=== PATIENT | female | born 2000 | race African-American/Black ===

== ENCOUNTER 2023-10-22 05:37 | Inpatient (IN) ==
--- NOTE | 2023-10-12 15:15 | History & Physical Report ---
Date of Service October 12, 2023 Assessment & Plan (1) Previous delivery affecting : (2) Gestational diabetes mellitus (GDM) affecting , antepartum: (3) Obesity affecting : (4) HSV (herpes simplex virus) anogenital infection: Plan Discussed indications, risks, benefits, alternatives with risks including infection, bleeding, injury to adjacent structures (bowel, bladder, ureters, blood vessels, nerves, baby), possible need for blood transfusion and/or life saving hysterectomy, VTE. Consent reviewed in detail w/ pt and signed after all questions answered to her satisfaction. History of Present Illness Chief Complaint: preop Primary Care Provider: NO PCP 23 yo G1 presents for preop to planned repeat CS at 39 wks. +FM; denies ctx, LOF, VB. 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 CS at 40 wks for 10lb 2 oz G2 current q23-28d cycles Hx HSV, ct Allergies Allergy/AdvReac Type Severity Reaction Status Date / Time No Known Allergies Allergy Verified 10/12/23 14:23 Home Medications Medication Instructions Recorded Confirmed Type vit no.95-ferrous 1 tab PO DAILY 05/21/23 10/12/23 History fumarate 28 mg-folic acid 800 mcg tablet () acetone (urine) test (Ketone Urine #50 ea 09/13/23 10/12/23 Rx Test strips) blood sugar diagnostic (FreeStyle #100 ea 09/17/23 10/12/23 Rx Lite Strips) blood-glucose meter (FreeStyle #1 ea 09/17/23 10/12/23 Rx Lite Meter kit) lancets 28 gauge (FreeStyle #100 ea 09/17/23 10/12/23 Rx Lancets) epinephrine 0.125 mg/actuation 1 puff inhalation Q4H PRN 09/24/23 10/12/23 History aerosol inhaler (Primatene Mist) sertraline 25 mg tablet (Zoloft) 25 mg PO DAILY #30 tabs 09/24/23 10/12/23 Rx Patient History Medical History HSV (herpes simplex virus) anogenital infection Atypical glandular cells of undetermined significance (BLAKE) on cervical Pap smear LGSIL on Pap smear of cervix Atopic dermatitis Seborrheic dermatitis Eczema HPV (human papilloma virus) infection Abnormal Pap smear of cervix Bartholin's gland abscess Seasonal allergies Chlamydia Asthma Surgical History S/P wisdom tooth extraction S/P tonsillectomy and adenoidectomy Status post colposcopy H/O section Family History Mother Stroke Hypertension Diabetes Depression Asthma Grandmother Diabetes Hypertension Father Depression Sister Depression Denies family history of Ovarian cancer Breast cancer Colorectal cancer Social History Smoking Status: Never smoker Second Hand Exposure: No; Do You Dip or Chew Tobacco: No; Hx Alcohol Use: No Hx Substance Use: No Preferred Language: Portuguese Communication Ability: Effective Visual Impairment: No Limitations Hearing Ability: Normal marital status: marital status details: Timur Irene (24) [phone] Current Living Situation: Spouse and Family Current Living Situation Comment: Lives with and child current occupational status: unemployed How many Children do You have: 1 Feels Safe at Home: Yes Childhood Exposure to Second-Hand Smoke: Yes Diet: low carbohydrate caffeine: Yes during the past year weight has: remained stable Dental Care, Regularly: No Physical Activity Frequency: Does not Exercise Seatbelt Use: always Sunscreen Use: No Assistive Devices: None Physical Exam Respiratory: normal respiratory effort, lungs clear to auscultation Cardiovascular: RRR, no murmur, no edema Genitourinary: NST reactive Results & Data Laboratory Results OB Labs: Blood Type B Positive 07/26/23 Antibody Screen NEGATIVE 07/26/23 Hemoglobin 10.0 g/dl (12.0-16.0) L 08/09/23 Hematocrit 29.9 % (37.0-47.0) L 08/09/23 Mean Corpuscular Volume 81.6 fL (80.0-100.0) 07/26/23 Platelet Count 284 K/uL (130-400) 07/26/23 Rubella IgG Antibody Immune (Immune) 07/26/23 Rapid Plasma Reagin Nonreactive (Nonreactive) 07/26/23 Hepatitis B Surface Antigen. NON-REACTIVE (NON-REACTIVE) 07/26/23 Hepatitis C Antibody (EIA) NON-REACTIVE (NON-REACTIVE) 07/26/23 HIV (1&2) Ag and Ab Confirmation NON-REACTIVE (NON-REACTIVE) 07/26/23 Glucose 1 Hour 50 gm Load 143 mg/dl (70-130) H 08/09/23 OB Optional Labs: Chlamydia trachomatis RNA Not Detected (NotDetected) 07/26/23 Neisseria gonorrhoeae RNA Not Detected (NotDetected) 07/26/23 Labs Reviewed: low risk [facility]--[facility] Diagnostic Findings 10/03 EFW 91%, AC > 98%, post plac Coding Level of Care Code None Diagnoses Previous delivery affecting O34.219 Gestational diabetes mellitus (GDM) affecting , antepartum O24.419 Obesity affecting O99.210 HSV (herpes simplex virus) anogenital infection A60.9
--- NOTE | 2023-10-15 14:06 | Anesthesiology Consultation ---
Date of Service October 15, 2023 Assessment & Plan (1) Encounter for pre-operative examination: Infectious disease screening: Per assessment on 10/15/23: No known recent infectious disease contacts or current infectious disease symptoms. Chart Review Chart Review: data entry assistant initiated History Surgery Operation Date: 10/22/23 07:30 Proposed Procedures p Section (Delivery of Baby Through Abdominal Incision) - Jeanette Mukherjee MD Height/Weight Height: 5 ft 2 in Weight: 112.491 kg Allergies Allergy/AdvReac Type Severity Reaction Status Date / Time No Known Allergies Allergy Verified 10/15/23 13:14 Medications Home Medications Medication Instructions Recorded Confirmed Last Taken vit no.95-ferrous 1 tab PO DAILY 05/21/23 10/15/23 05/20/23 fumarate 28 mg-folic acid 800 mcg tablet () acetone (urine) test (Ketone Urine #50 ea 09/13/23 10/12/23 Unknown Test strips) blood sugar diagnostic (FreeStyle #100 ea 09/17/23 10/12/23 Unknown Lite Strips) blood-glucose meter (FreeStyle #1 ea 09/17/23 10/12/23 Unknown Lite Meter kit) lancets 28 gauge (FreeStyle #100 ea 09/17/23 10/12/23 Unknown Lancets) epinephrine 0.125 mg/actuation 1 puff inhalation Q4H PRN SOB 09/24/23 10/15/23 Unknown aerosol inhaler (Primatene Mist) sertraline 25 mg tablet (Zoloft) 25 mg PO HS 10/15/23 10/15/23 Unknown Past Medical History Medical History (Updated 10/15/23 @ 14:05 by Alise Sawyer) Asthma Depression Eczema Hands Gestational diabetes mellitus (GDM) affecting HPV (human papilloma virus) infection Hx, no current issues Seasonal allergies Past Family History Family History Mother Stroke Hypertension Diabetes Depression Asthma Grandmother Diabetes Hypertension Father Depression Sister Depression Denies family history of Ovarian cancer Breast cancer Colorectal cancer Past Surgical History Surgical History (Updated 10/15/23 @ 14:05 by Alise Sawyer) H/O section S/P tonsillectomy and adenoidectomy S/P wisdom tooth extraction Status post colposcopy In-office procedure Social History Smoking Status: Never smoker Do You Dip or Chew Tobacco: No Hx Alcohol Use: Yes (socially, but rare) Hx Substance Use: No substance use type: does not use
[2023-10-22] MEDS: LACTATED RINGER'S 1,000 ML IV SCH ×2 (06:00→10:02)
[2023-10-22 06:10] LABS: Hematocrit (blood only) 31.4 % (37.0-47.0); Mean Corpuscular Hgb Conc 31.8 g/dL (32.0-36.0); Mean Corpuscular Volume 78.5 fL (80.0-100.0); Mean Platelet Volume 11.1 fL (9.4-12.4); Platelet Count 247 K/uL (130-400); RDW Coefficient of Variation 14.6 % (11.5-14.5); RDW Standard Deviation 41.1 fL (36.4-46.3); White Blood Count 9.29 K/ul (4.8-10.8)
[2023-10-22] MEDS: ACETAMINOPHEN 500 MG TAB PO SCH (06:13)
[2023-10-22] MEDS ORDERED: SODIUM CHLORIDE 0.9% 250 ML IV PRN (06:32)
[2023-10-22] MEDS ORDERED: LACTATED RINGER'S 1,000 ML IV SCH (06:45)
--- NOTE | 2023-10-22 07:14 | History & Physical Bridge Note ---
Date of Service October 22, 2023 History & Physical Bridge Note I have examined the patient, reviewed the History & Physical and in the interval since the performance of the History & Physical I have noted the following changes of clinical significance: no changes noted
[2023-10-22] MEDS ORDERED: ONDANSETRON INJ 2 MG/ML 2 ML VIAL ONE (07:15)
[2023-10-22] MEDS ORDERED: OXYTOCIN 10 UNITS/ML VIAL ONE (07:15)
[2023-10-22] MEDS ORDERED: fentaNYL citrate PF 100 MCG/2 ML VIAL ONE (07:15)
[2023-10-22] MEDS ORDERED: KETOROLAC 30 MG/ML VIAL ONE (07:15)
[2023-10-22] MEDS ORDERED: GLYCOPYRROLATE 0.2 MG/ML VIAL ONE (07:15)
[2023-10-22] MEDS ORDERED: MoRPHine SULFATE PF 1 MG/ML 10 ML AMP/VIAL ONE (07:15)
[2023-10-22] MEDS ORDERED: PHENYLEPHRINE 100MCG/ML 10ML SYR IV ONE (07:15)
[2023-10-22] MEDS ORDERED: DEXAMETHASONE SOD INJ 4 MG/ML VIAL ONE (07:15)
[2023-10-22] MEDS: CITRIC ACID/SODIUM CITRATE 15 ML UDC PO SCH (07:25)
[2023-10-22] MEDS: ceFAZolin 3,000 MG/72.5 ML BAG IV SCH (07:31)
[2023-10-22] MEDS ORDERED: DROPERIDOL 5 MG/2 ML VIAL IV PRN (08:22)
[2023-10-22] MEDS ORDERED: NALOXONE HCL 0.08 MG in SYRINGE 1.8 ML IV PRN (08:22)
[2023-10-22] MEDS ORDERED: ePHEDrine sulfate 50 MG/ML AMP IV PRN (08:22)
[2023-10-22] MEDS ORDERED: ONDANSETRON INJ 2 MG/ML 2 ML VIAL IV PRN (08:22)
[2023-10-22] MEDS ORDERED: PROMETHAZINE 6.25 MG/50.25 ML BAG IV PRN (08:22)
[2023-10-22] MEDS ORDERED: NALOXONE HCL 0.4 MG/1 ML VIAL/CARP IV PRN (08:22)
[2023-10-22] MEDS ORDERED: NALOXONE HCL 1 MG in SODIUM CHLORIDE 0.9% 1,000 ML IV PRN (08:22)
[2023-10-22] MEDS ORDERED: LACTATED RINGER'S 500 ML IV PRN (08:22)
[2023-10-22] MEDS ORDERED: MEPERIDINE HCL 25 MG/ML CARP/VIAL IV PRN (08:22)
[2023-10-22] MEDS ORDERED: NO NARCOTICS OR SEDATIVES SCH (08:30)
[2023-10-22] MEDS ORDERED: DC INTRASPINAL MORPHINE SCH (08:30)
--- NOTE | 2023-10-22 08:56 | Operative Report ---
Post Operative Report Pre & Post Diagnosis Operation Date: 10/22/23 07:30 Pre-Op Diagnosis: Intrauterine at 39 weeks; History of Section x 1, Desires Repeat; A1GDM Post-Op Diagnosis: Intrauterine at 39 weeks, History of Section x 1, Desires Repeat; A1GDM I identified the patient and participated in the time-out.: Yes Procedure Operation Date: 10/22/23 07:30 Actual Procedures p Repeat Low Transverse Section with delivery of live male child at 0811 - Jeanette Mukherjee MD Surgeon Jeanette Mukherjee MD Air Traffic Control Supervisor MD [place] Quantitative Blood Loss (QBL) 551 Findings Consistent with Post-Op Diagnosis Normal appearing uterus, bilateral fallopian tubes and ovaries. Viable male infant with APGARs of 8 and 9 at 1 and 5 minutes, weight pending Specimens Placenta, cord blood Drains Ramos draining clear urine Anesthesia Type Spinal Complications none Disposition Accompanied Patient To Recovery: Yes Disposition: L&D Indications 23 yo at 39 wga presents for planned repeat CS Description of Procedure The patient was taken to the operating room after consents were ensured. The patient was properly identified. Spinal anesthesia was obtained without difficulty. The patient was placed in a dorsal supine position with left lateral tilt, then prepped and draped in normal sterile fashion. Surgical time out was performed. Antibiotics were given for prophylaxis. Anesthesia was tested to ensure adequate surgical levels. Pfannenstiel skin incision was performed and carried down to the underlying fascia with a knife. The fascia was then nicked in the midline and extended laterally with pickups and Chacko scissors. Superior portion of the fascia was grasped with Kochers x2 and elevated off the underlying rectus muscles using blunt dissection. Inferior portion of the fascia was then grasped with Erik clamps x2 and also elevated off the underlying muscles with blunt dissection. Midline was identified. The peritoneum was then entered and extended to provide adequate room for delivery of baby. A hand was inserted into the abdomen, uterus was noted to be clear of adhesions. Bladder blade was inserted, bladder flap was created in the usual fashion. A low transverse uterine incision was made in the uterus and extended bluntly in a superior to inferior fashion. Amniotomy was made with clear fluid at the time of rupture. head was grasped and elevated to the hysterotomy in an atraumatic fashion. head unable to be delivered through the hysterotomy despite adequate fundal pressure. Vacuum was called for and applied to the flexion point, pressure increased to the green zone. With one pull and fundal pressure, baby delivered in CAILIN position, no nuchal cord. Vacuum was removed. Remainder of the body delivered without incident. Nose and mouth were bulb suctioned on the surgical field. The cord was double clamped and cut, baby was handed off to awaiting pediatrics staff. Cord segment and blood were obtained. Placenta was then expressed from the uterus. The uterus was exteriorized. Several passes were made inside the uterus to remove the remaining membranes. Attention was then turned to the hysterotomy, which was then closed with a running locked suture of 0 Vicryl on a CTX needle. An imbricating layer was then performed using 0-Monocryl. There was noted to be good hemostasis. The posterior cul-de-sac was then inspected and cleaned of clot and debris. The hysterotomy was again inspected and noted to be hemostatic. The uterus was returned to the abdomen. The right and left pericolic gutters were cleaned of all clot and debris. The hysterotomy was again noted to be hemostatic. Space of Retzius was noted to be hemostatic. The fascia was then closed with a running suture of 0 Vicryl on a CT1 needle. Subcutaneous tissue was copiously irrigated and noted to be hemostatic. Subcutaneous tissue was re-approximated using 2-0 plain gut. The skin was then closed with a running suture of 3-0 Monocryl in a subcuticular fashion. At termination of the procedure, fundal pressure was applied and a moderate amount of lochia was expressed. Pressure dressing was applied to the patient. She tolerated the procedure well. All sponge, needle, instrument counts were correct x 2. I attest to the content of the Intraoperative Record and any orders documented therein. Any exceptions are noted below. OB Procedure Charges 87808
--- NOTE | 2023-10-22 09:06 | Anesthesiology Progress Note ---
Date of Service October 22, 2023 Anesthesia Post Procedure Vital Signs Vital Signs: Temp Pulse Resp BP Pulse Ox 10/22/23 09:01 98 H 162/67 H 10/22/23 08:59 106 H 98 10/22/23 05:49 36.9 C 99 H 18 134/82 10/22/23 05:45 36.9 C 99 H 18 134/82 Transfer of Care Handoff Completed per policy Notes Mental Status: alert / awake / arousable Patient Amnestic to Procedure: Yes Nausea / Vomiting: adequately controlled Pain: adequately controlled Airway Patency, RR, SpO2: stable & adequate BP & HR: stable & adequate Hydration State: stable & adequate Neuraxial Anesthesia: was administered and sensory block is resolving Anesthetic Complications: no major complications apparent and Pt Satisfied with anesthetic care
[2023-10-22] MEDS ORDERED: SENNA 8.6 MG TAB PO PRN (09:30)
[2023-10-22] MEDS ORDERED: HYDROCORTISONE ACETATE 25 MG SUPP PR PRN (09:30)
[2023-10-22] MEDS ORDERED: MAGNESIUM HYDROXIDE SUSP 30 ML UDC PO PRN (09:30)
[2023-10-22] MEDS ORDERED: BENZOCAINE 20% SPRY 85 APPLN/85 GM CAN EXT PRN (09:30)
[2023-10-22] MEDS ORDERED: CALCIUM CARBONATE 500 MG CHEWABLE TAB PO PRN (09:30)
[2023-10-22] MEDS: MoRPHine SULFATE PF 1 MG/ML 10 ML AMP/VIAL INT SPINAL ONE (10:01)
[2023-10-22] MEDS: SODIUM CHLORIDE 0.9% 1,000 ML IV SCH (10:02)
[2023-10-22] MEDS: diphenhydrAMINE 50 MG/ML VIAL IV PRN (10:31)
[2023-10-22] MEDS: METOCLOPRAMIDE HCL 20 MG in SODIUM CHLORIDE 0.9% 50 ML IV PRN (10:45)
[2023-10-22] MEDS ORDERED: Nursing to Pharmacy Communication SCH (11:00)
[2023-10-22] MEDS: HYDROmorphone INJ 0.5 MG/0.5 ML SYR IV PRN (11:26)
[2023-10-22] MEDS: ACETAMINOPHEN 325 MG TAB PO SCH (11:52)
[2023-10-22] MEDS: IBUPROFEN 600 MG TAB PO SCH (11:52)
[2023-10-22] MEDS: OXYTOCIN 20 UNITS/LR 1,002 ML IV SCH (13:15)
[2023-10-22] MEDS: SIMETHICONE 80 MG CHEW PO SCH (13:19)
[2023-10-22] MEDS: KETOROLAC 30 MG/ML VIAL IV PRN (14:21)
[2023-10-22] MEDS: NALBUPHINE HCL 5 MG in SYRINGE 0 ML IV PRN (14:22)
[2023-10-22] MEDS: DOCUSATE SODIUM 100 MG CAP PO SCH (20:44)
[2023-10-22] MEDS: SERTRALINE HCL 50 MG TABLET PO SCH (21:00)
[2023-10-23] MEDS ORDERED: HYDROmorphone INJ 0.5 MG/0.5 ML SYR IV PRN (02:23)
[2023-10-23] MEDS ORDERED: PROMETHAZINE 12.5 MG/50.5 ML BAG IV PRN (02:23)
[2023-10-23] MEDS ORDERED: diphenhydrAMINE 50 MG/ML VIAL IV PRN (02:23)
[2023-10-23] MEDS ORDERED: diphenhydrAMINE Capsule 25 MG CAP PO PRN (02:23)
[2023-10-23] MEDS ORDERED: ONDANSETRON INJ 2 MG/ML 2 ML VIAL IV PRN (02:23)
--- NOTE | 2023-10-23 06:00 | Obstetrical Progress Note ---
Date of Service October 23, 2023 Assessment & Plan (1) care and examination: Plan: POD#1: Stable; continue routine care Continue OOB and ambulation, diet as tolerated Rh+, gbs -, ri Admission and Anticipated Discharge Date Admission Date: October 22, 2023 Supervising Physician Co-Signing Physician Notes Resident Physician Supervision Note: I interviewed and examined the patient. Discussed with Dr. Clifford and agree with findings and plan as documented in the note. Any exceptions or clarifications are listed here: POD1 s/p rLTCS, doing well. VSS, exam benign, dressing c/d/i. Hgb noted, iron ordered, asymptomatic. Continue routine care Documented By: Jeanette Mukherjee MD Tylor Landaverde is a 23 y/o female who is POD#1 following delivery at term. Has some pain around the incision (~5/10 when she stands), well managed on analgesics Is voiding Is tolerating meals Can ambulate on own Is passing gas but not had a BM Having appropriate lochia Currently breast feeding. Review of Systems 2 Constitutional: no fever, no chills and no sweats Respiratory: no dyspnea Cardiovascular: no chest pain, no palpitations and no calf pain Genitourinary: no dysuria Neurologic: no headache(s) Physical Exam 2 Physical Exam: General: No acute distress. Cardiac: Regular rate and rhythm, no murmurs, rubs, or gallops. Respiratory: Clear to auscultation bilaterally, no wheezes/rales/rhonchi. No increased work of breathing. Symmetrical chest rise. No respiratory distress. Abdomen: Soft, nontender, nondistended. Bowel sounds present. Uterus: Uterine fundus firm, palpable at the level of the umbilicus. Incision dressing clean and dry. Lower extremities: No lower extremity edema or swelling. No deep calf pain. Results & Data Vital Signs (Past 12 Hours) Vital Signs Temp Pulse Resp BP Pulse Ox O2 Del Method 10/23/23 03:25 36.9 C 81 16 110/71 98 Room Air 10/23/23 02:00 18 97 10/23/23 01:00 98 10/23/23 00:00 99 10/22/23 23:37 36.8 C 67 16 108/66 98 Room Air 10/22/23 23:00 97 10/22/23 22:00 96 10/22/23 21:00 18 97 10/22/23 20:15 96 10/22/23 19:30 18 98 10/22/23 19:20 36.7 C 70 18 99/61 L 98 Room Air 10/22/23 18:04 16 96 Laboratory Results 10/22/23 05:49 Resident Activity Tracking Resident Involvement: Resident Care Provided Care Provided: Adult Hospital Medicine
[2023-10-23 06:51] LABS: Basophils # (auto) 0.03 K/uL (0.00-0.20); Basophils % (auto) 0.3 %; Eosinophils # (auto) 0.03 K/uL (0.00-0.50); Eosinophils % (auto) 0.3 %; Hematocrit (blood only) 23.1 % (37.0-47.0); Hemoglobin 7.4 g/dl (12.0-16.0); Immature Granulocytes # (auto) 0.07 K/uL (0.01-0.20); Immature Granulocytes % (auto) 0.7 %; Lymphocytes # (auto) 1.57 K/uL (1.20-3.40); Lymphocytes % (auto) 15.2 %; Monocytes # (auto) 0.95 K/uL (0.11-0.59); Monocytes % (auto) 9.2 %; Neutrophils # (auto) 7.65 K/uL (1.40-6.50); Neutrophils % (auto) 74.3 %; Platelet Count 186 K/uL (130-400); RDW Coefficient of Variation 14.9 % (11.5-14.5); Red Blood Count 2.96 M/uL (4.20-5.40)
[2023-10-23 07:20] LABS: RBC Morphology Unremarkable
[2023-10-23] MEDS: FERROUS SULFATE 325 MG TAB PO SCH (08:28)
[2023-10-23] MEDS: PRENATAL VITAMIN 1 TAB PO SCH (08:28)
[2023-10-23] MEDS: oxyCODONE HCL IR 5 MG TAB (IMMEDIATE RELEASE) PO PRN (08:29)
[2023-10-23] MEDS: bisacodyL 5 MG TABEC PO SCH (20:01)
--- NOTE | 2023-10-24 06:04 | Obstetrical Progress Note ---
Date of Service October 24, 2023 Assessment & Plan (1) care and examination: Plan: POD#2: Stable; continue routine care Continue OOB and ambulation, diet as tolerated Ready for d/c today w pain meds Rh+, gbs -, ri Admission and Anticipated Discharge Date Admission Date: October 22, 2023 Supervising Physician Co-Signing Physician Notes Resident Physician Supervision Note: I interviewed and examined the patient. Discussed with Dr. Clifford and agree with findings and plan as documented in the note. Any exceptions or clarifications are listed here: POD#2 doing well. Desires DC home. Rx Percocet #20 tabs to pharmacy on file. Followup 6w PP in office. Documented By: Karen Ewing, DO Subjective Saima is a 23 y/o female who is POD#2 following delivery at term. Rates pain around the incision 3/10, ok on analgesics She reports having moderate gas pain (5/10) but is passing gas and has had BMs She is voiding, tolerating meals, ambulating, having appropriate lochia Currently breast feeding. Has hardly slept while in hospital and would like to go home. Review of Systems Constitutional: no fever, no chills and no sweats Respiratory: no dyspnea Cardiovascular: no chest pain, no palpitations and no calf pain Genitourinary: no dysuria Neurologic: no headache(s) Physical Exam Physical Exam: General: No acute distress. Cardiac: Regular rate and rhythm, no murmurs, rubs, or gallops. Respiratory: Clear to auscultation bilaterally, no wheezes/rales/rhonchi. No increased work of breathing. Symmetrical chest rise. No respiratory distress. Abdomen: Soft, nontender, nondistended. Bowel sounds present. Uterus: Uterine fundus firm, palpable at the level of the umbilicus. Incision clean and dry. Lower extremities: No lower extremity edema or swelling. No deep calf pain. Results & Data Vital Signs (Past 12 Hours) Vital Signs Temp Pulse Resp BP Pulse Ox O2 Del Method 10/24/23 02:30 36.7 C 63 16 113/80 100 Room Air 10/23/23 20:00 Room Air 10/23/23 20:00 36.7 C 78 16 121/62 98 Room Air Resident Activity Tracking Resident Involvement: Resident Care Provided Care Provided: Adult Hospital Medicine
[2023-10-24 06:45] LABS: Hematocrit (blood only) 26.2 % (37.0-47.0); Hemoglobin 8.4 g/dl (12.0-16.0)
[2023-10-24] MEDS ORDERED: bisacodyL 10 MG SUPP PR PRN (08:37)
[2023-10-24 10:05] VITALS: RESP 20; O2SAT 99
[2023-10-24] MEDS: IBUPROFEN 600 MG TAB PO PRN (14:50)
[2023-10-24] MEDS: ACETAMINOPHEN 325 MG TAB PO PRN (14:50)
[2023-10-24] MEDS: DIPHTHER/TETAN/PERTUS Vaccine (Tdap, Adol/Adult) 0.5mL IM ONE (14:52)
[2023-10-24 16:13] VITALS: BP 128/72; PULSE 80; TEMP 98.2
--- NOTE | 2023-10-26 08:29 | Discharge Summary ---
Date of Service October 26, 2023 Admission HPI Per Admitting Provider 23 yo G1 presents for preop to planned repeat CS at 39 wks. +FM; denies ctx, LOF, VB. 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 course was uncomplicated and she was discharged home on POD2 Coding Level of Care Code None Diagnoses care and examination Z39.2
== END 2023-10-24 20:08 | disposition home or self-care (01) | DRG 788 ==
LOC: ASU 05:37 → 4S1 05:41 → 4E2 13:24
DX: Z79.899 Other long term (current) drug therapy; Z37.0 Single live birth; Z3A.39 39 weeks gestation of pregnancy; O24.429 Gestational diabetes mellitus in childbirth, unspecified control; O34.211 Maternal care for low transverse scar from previous cesarean delivery